=== PATIENT | female | born 1985 | race African-American/Black ===

== ENCOUNTER 2023-04-09 13:45 | Emergency (ER) | payer MEDICAID, MEDICARE ==
[~2023-04-09] VITALS: Ht 157.5 cm; Wt 62.0 kg
[2023-04-09 16:34] LABS: BASOPHILS % 0.7 % (0.0-2.0); EOSINOPHILS % 0.5 % (0.0-5.0); HEMATOCRIT. 40.8 % (36.0-48.0); HEMOGLOBIN. 13.8 g/dL (12.0-16.0); LYMPHOCYTES % 44.5 % (20.0-50.0); MEAN CORPUSCULAR VOLUME 97.7 fL (81.0-99.0); MEAN PLATELET VOLUME 7.4 fl (7.4-10.4); NEUTROPHILS % 47.3 % (40.0-76.0); PLATELET 159 x1000/uL (130-400); RED BLOOD CELL COUNT 4.18 mill/uL (4.2-5.4)
[2023-04-09 16:45] LABS: CHLORIDE 104 mEq/L (98-107)
[2023-04-09 17:55] VITALS: BP 133/89
== END 2023-04-09 17:56 | disposition home or self-care (01) ==
LOC: ER 13:45
DX: R56.9 Unspecified convulsions (principal); R05.9 Cough, unspecified; R09.81 Nasal congestion; M19.90 Unspecified osteoarthritis, unspecified site; I10 Essential (primary) hypertension; F41.9 Anxiety disorder, unspecified
CPT/HCPCS: 36415; 71045; 80053; 81025; 85025; 93005; 99285